=== PATIENT | female | born 1965 | race Caucasian/White ===

== ENCOUNTER 2020-06-17 10:15 | Outpatient (REF) | payer OTHER, SELFPAY ==
[2020-06-17 13:12] LABS: MANUAL DIFF FLAG NO
[2020-06-17 13:21] LABS: Basophils Percent Auto 0.8 % (0-2); Eosinophils Absolute Auto 0.1 X10*3/uL (0.0-0.4); Eosinophils Percent Auto 3.4 % (0-4); Hemoglobin 13.1 g/dl (12.0-16.0); Imm Gran Abs Auto 0.01 X10*3/uL (0.00-0.03); Imm Gran Pct Auto 0.3 % (0.0-0.4); Lymphocytes Absolute Auto 0.8 X10*3/uL (1.2-4.9); Lymphocytes Percent Auto 22.4 % (20-40); Mean Corpuscular Hemoglobin 29.3 pg (27.0-33.0); Mean Corpuscular Volume 91.7 fL (80-98); Mean Platelet Volume 10.3 fL (9.4-12.3); Monocytes Absolute Auto 0.3 X10*3/uL (0.1-1.2); Monocytes Percent Auto 7.9 % (2-11); Neutrophils Absolute Auto 2.3 X10*3/uL (2.0-8.3); Neutrophils Percent Auto 65.2 % (45-73); Platelet Count 221 X10*3/uL (160-400); Red Blood Count 4.47 X10*6/uL (4.20-5.50); White Blood Count 3.5 X10*3/uL (4.8-10.8)
[2020-06-17 13:48] LABS: D Dimer < 200 NG/ML
[2020-06-17 13:55] LABS: Anion Gap 11 (12-20); Blood Urea Nitrogen 15 mg/dL (9-16); Calcium 9.1 mg/dL (8.4-10.2); Carbon Dioxide 29 mmol/L (22-29); Chloride 105 mmol/L (96-108); Estimated Glomerular Filt Rate > 60; Glucose Random 85 mg/dL (60-115); Potassium 4.1 mmol/l (3.3-5.1); Sodium 141 mmol/L (135-145)
[2020-06-17 14:10] LABS: Erythrocyte Sedimentation Rate 9 MM/HR (0-20)
[2020-06-17 14:13] LABS: SARS COV2 IgG Negative (Negative)
[2020-06-19 13:37] LABS: Anti Nuclear Antibody Screen NEGATIVE (NEGATIVE)
== END 2020-06-17 10:16 | disposition home or self-care (01) ==
LOC: HO.LAB 10:15
PROVIDERS: PCP Family Medicine; Visit Provider Hospitalist
DX: R07.89 Other chest pain (principal); R00.0 Tachycardia, unspecified; R06.00 Dyspnea, unspecified; Z20.828 Contact with and (suspected) exposure to other viral communicable diseases
CPT/HCPCS: 36415; 80048; 82785; 85025; 85379; 85652; 86003; 86038; 86039; 86769

== ENCOUNTER 2020-07-11 09:54 | Outpatient (REF) | payer OTHER, SELFPAY ==
--- NOTE | 2020-07-11 15:30 | PFT_ITS ---
INDICATION: Dyspnea. SPIROMETRY: The FEV1 to FVC 74% with an FEV1 of 2.5 L, which is 84% predicted, and an FVC of 3.39 L, which is 89% predicted. No significant response to bronchodilators noted. The patient does have evidence of small airway disease and maximum voluntary ventilation 82% predicted. LUNG VOLUMES: Total lung capacity 90% predicted. Residual volume is 80% predicted. DIFFUSION CAPACITY: DLCO 60% predicted. COMPARISONS: None. INTERPRETATION: There appears to be reversible obstruction consistent with the diagnosis of asthma. The patient does have significant small airways disease, also which may be suggestive of asthma. Maximum voluntary ventilation is within normal limits. Lung volumes are within normal limits. However, the patient does have mild to moderate diffusion impairment that is out of proportion to the findings as above. We will continue monitoring this. This also needs to be corrected for hemoglobin, need to consider underlying pulmonary vascular conditions and/or occult interstitial lung conditions, but at this point, less likely. Og Franco MD MR/MODL / [id number]
== END 2020-07-11 09:55 | disposition home or self-care (01) ==
LOC: HO.RESP 09:54
PROVIDERS: Visit Provider Hospitalist
DX: R06.00 Dyspnea, unspecified (principal)
CPT/HCPCS: 94060; 94727; 94729

== ENCOUNTER → 2020-11-04 11:17 | Outpatient (BNVA) | payer OTHER, SELFPAY | PROVIDERS: PCP Pediatrics; Visit Provider Hospitalist ==

== ENCOUNTER 2021-10-15 14:49 | Outpatient (REF) | payer OTHER, SELFPAY ==
--- NOTE | 2021-10-15 | PFT_ITS ---
INDICATION: Asthma. SPIROMETRY: FEV1 to FVC of 71% with an FEV1 of 2.32 L, which is 79% predicted; an FVC of 3.27 L, which is 86% predicted. No significant response to bronchodilators noted. To note, the patient does have significant small airway disease consistent with diagnosis of asthma. Maximum voluntary ventilation 91% predicted. LUNG VOLUMES: Total lung capacity 96% predicted. DIFFUSION CAPACITY: DLCO 60% predicted. COMPARISONS: PFTs from June 2020. There appears to be a partially reversible obstructive ventilatory defect consistent with her diagnosis of asthma. No significant response to bronchodilators noted. Again, small airways disease consistent with asthma. Normal maximum voluntary ventilation. Lung volumes are within normal limits. The patient does have a mild diffusion impairment. When compared to 2020, no significant change in the FVC or the FEV1. She does have a trend increase in the total lung capacity, and residual volume. The diffusion capacity is unchanged. Clinical correlation warranted. MD YOUNG Lindsey/JAYLA / [id number]
--- NOTE | 2021-10-16 23:57 | OP_ITS ---
SURGEON: Og Franco MD PREOPERATIVE DIAGNOSIS: POSTOPERATIVE DIAGNOSIS: PROCEDURE PERFORMED: ESTIMATED BLOOD LOSS: COMPLICATIONS: ANESTHESIA: ASSISTANTS: SPECIMENS: STUDY: Pulmonary function study. INDICATION: Asthma. SPIROMETRY: FEV1 to FVC of 71% with an FEV1 of 2.32 L, which is 79% predicted, and FVC of 3.27 L, which is 86% predicted. No significant response to bronchodilators noted. Maximum voluntary ventilation 91% predicted. LUNG VOLUMES: Total lung capacity 96% predicted with an expiratory reserve volume of 86% predicted. DIFFUSION CAPACITY: DLCO 60% predicted. COMPARISONS: From 2020. INTERPRETATION: There appears to be a partially reversible obstruction consistent with the diagnosis of asthma. No significant response to bronchodilators noted. Normal maximum voluntary ventilation. Lung volumes are within normal limits. The patient does have a mild diffusion impairment. When compared to 2020, there is no significant change in the FVC. No significant change in the FEV1. There is a trend increase in the total lung capacity, and also the residual volume and no significant change in the diffusion capacity. Clinical correlation warranted. Og Franco MD MR/MODL / [id number]
== END 2021-10-15 14:50 | disposition home or self-care (01) ==
LOC: HO.RESP 14:49
PROVIDERS: PCP Internal Medicine; Visit Provider Hospitalist
DX: J45.909 Unspecified asthma, uncomplicated (principal); Z79.899 Other long term (current) drug therapy
CPT/HCPCS: 94060; 94727; 94729

== ENCOUNTER → 2021-11-04 11:09 | Outpatient (BNVA) | payer OTHER, SELFPAY | PROVIDERS: PCP Internal Medicine; Visit Provider Hospitalist | DX: J45.40 Moderate persistent asthma, uncomplicated (principal) ==

== ENCOUNTER → 2022-11-25 12:48 | Outpatient (BNVA) | payer OTHER, SELFPAY | PROVIDERS: PCP Internal Medicine; Visit Provider Hospitalist ==

== ENCOUNTER 2024-02-04 09:52 | Outpatient (REF) | payer BC, SELFPAY ==
--- NOTE | 2024-02-04 10:00 | PFT_ITS ---
Flows: FEV1: 80 % of predicted at 2.22 L FVC: 99 % of predicted at 3.51 L FEV1/FVC: 63 % Bronchodilator response: Absent Volumes: Total lung capacity: 88 % of predicted at 5.01 L Residual volume: 82 % of predicted at 1.54 L Slow vital capacity: 92 % of predicted at 3.47 L Expiratory reserve volume: 98 % of predicted at 0.96 L Diffusion capacity: Normal Impression: [id number] obstructive ventilatory defect with no bronchodilator response. MTDD
== END 2024-02-04 09:53 | disposition home or self-care (01) ==
LOC: HO.RESP 09:52
PROVIDERS: PCP Internal Medicine; Visit Provider Hospitalist
DX: J45.40 Moderate persistent asthma, uncomplicated (principal)
CPT/HCPCS: 94010; 94640; 94727; 94729

== ENCOUNTER 2024-02-23 15:08 | Outpatient (AMB) | payer BC, SELFPAY ==
[2024-02-23 15:27] VITALS: BP 118/64; PULSE 73; O2SAT 97; BMI 21.9
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
== END 2024-02-23 16:01 | disposition home or self-care (01) ==
PROVIDERS: PCP Internal Medicine; Visit Provider Hospitalist
DX: J45.40 Moderate persistent asthma, uncomplicated (principal); R06.00 Dyspnea, unspecified
CPT/HCPCS: 99214

== ENCOUNTER → 2024-02-23 15:08 | Outpatient (BNVA) | payer BC, SELFPAY | PROVIDERS: PCP Internal Medicine; Visit Provider Hospitalist ==

== ENCOUNTER 2024-12-17 09:04 | Outpatient (AMB) | payer BC, SELFPAY ==
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
--- OUTSIDE RECORDS SUMMARY | 2024-12-17 09:22 | XMS_ITS | Data Portability ---
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 Discussed a differential possibly related to use of inhaled steroids for her lungs. She is diligent with rinsing her mouth with water and has no other symptoms of thrush. She also describes her globus sensation is worse after eating solid foods. Her history of craniectomy for meningioma raises possibility of microaspiration. Fiberoptic laryngoscopy was benign with no pooling of secretions or tumors or lesions. Recommend further investigation with barium swallow. She is agreeable to review results through the portal [email or web address] Not available 04/27/2024 11:13:19 Plan of Treatment Reminders Order Date Submit Date Provider Last Modified By Organization Details Last Modified Time Details Appointments None recorded . Lab None recorded . Referral None recorded . Procedures None recorded . Surgeries None recorded . Imaging barium swallow study 2023 [facility] Imaging Dept, [address] [facility], [place], [address], 10:55:04 Medication Orders None recorded . Patient TargetsNo targets recorded. Patient InstructionsNo instructions recorded. Reason for Referral None Reported. Problems Name Problem SNOMED Code Status Onset Date Resolution Date Notes Provider Name and Address Organization Details Recorded Time Feeling of lump in throat 693560028 Active JEFE LEVY MD [address] [facility] [address], [place], [address], [place] - [facility] 4 11:11:04 Dysphagia 35247366 Active 024 JEFE LEVY MD [address] [address], [place], [phone], [facility] - [facility] 4 11:11:29 Problem Notes None recorded. Procedures Surgical History Date Name Laterality Status Provider Name and Address Organization Details Recorded Time 04/27/20 24 FOL_DP completed JEFE LEVY MD [address], [address], [place] - [facility] 04/24/2024 13:25:48 Hysterectomy completed Lynn Robles [place] - [facility] 04/27/2024 10:46:03 thyroidectomy completed Lynn Robles [place] - [facility] 04/27/2024 10:46:10 section completed Lynn Robles [place] - [facility] 04/27/2024 10:47:49 procedure on brain completed Lynn Robles [place] - [facility] 04/27/2024 10:47:55 Imaging Results None recorded. Procedure Notes None recorded. Medical Equipment None Reported. Allergies No known drug allergies Medications Name Sig Start Date Stop Date Status Note LastModified by Organization Details LastModified Time cetirizine 10 mg tablet TAKE 1 TABLET BY MOUTH EVERY DAY active Not Available Not Available No t Available terbinafine HCl 250 mg tablet TAKE 1 TABLET BY MOUTH EVERY DAY FOR 2 MORE MONTHS 04/27 completed Not Available Not Available Not Available amitriptyli ne 25 mg tablet TAKE 1 TABLET BY MOUTH EVERYDAY AT BEDTIME active Not Available Not Available No t Available econazole nitrate 1 % topical cream APPLY EVERY MORNING AND EVENING ON RIGHT FOOT FOR 4 WEEKS UNTIL CLEAR 04/27 completed Not Available Not Available Not Available zolpidem 10 mg tablet TAKE 1 TABLET BY MOUTH EVERY DAY AT BEDTIME NEEDED FOR FOR INSOMNIA active Not Available Not Available No t Available fluticasone propionate 50 mcg/actuati on nasal spray,suspe nsion USE 1 SPRAYS IN BOTH NOSTRILS DAILY,X30 DAYS SHAKE WELL BEFORE USING active Not Available Not Available No t Available amoxicillin 875 mg-potassiu m clavulanate 125 mg tablet TAKE 1 TABLET BY MOUTH EVERY 12 HOURS FOR 10 DAYS 04/27 completed Not Available Not Available Not Available fluticasone 232 mcg-salmete rol 14 mcg/actuati on breath activated powdr INHALE 1 PUFF EVERY 12 HOURS FOR 30 DAYS active Not Available Not Available No t Available Vitals Date Recorded Body height Body weight Provider Name and Address Organization Details Last Updated DateTime 04/27/2024 170.18 cm 78462.75 g Lynn Robles [place] - [facility] 04/27/2024 10:47:29 Social History None recorded. Functional Status None recorded. Mental Status None recorded. Family History Nothing Reported. Medical History Condition Response Anemia Y Arthritis Y Asthma Y Gynecological HistoryNo gynecological history recorded. Obstetrics History GPAL:G 0 P 0 0 0 0 Past Encounters Encounter ID Performer Location Encounter Start Date Encounter Closed Date Diagnosis/Indication Diagnosis SNOMED-CT Code Diagnosis ICD10 Code Diagnosis Note [id number] JEFE LEVY MD [facility] [address] [address] 04/27/2024 10:25:38 04/27/2024 11:14:55 Feeling of lump in throat 118772737 R09.89 Dysphagia 69060285 R13.1 0 Health Concerns Section Related Observation LastModified by Organization Detai ls LastModified Time None Recorded Concern Status LastModified by Organization Details LastModified Time None Recorded Advance Directives Directive None Recorded Payers Insurance Date Sequence Insurance Name Policy Number Policy Rousseau Covered Member ID Rousseau Member ID Guarantor Name 04/27/2024 1 [employer] [id number] Eleanor Bradford [id number] Eleanor Bradford Notes Date Note Type Note Provider Name and Address Organization Details Recorded Time 04/27/2024 text/html frequent throat clearingtrial of omeprazole x 1 month with no improvement. 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
== END 2024-12-17 09:38 | disposition home or self-care (01) ==
LOC: HO.HPS 09:05
PROVIDERS: PCP Internal Medicine; Visit Provider Hospitalist
DX: J45.40 Moderate persistent asthma, uncomplicated (principal); R06.00 Dyspnea, unspecified; J44.89 Other specified chronic obstructive pulmonary disease
CPT/HCPCS: 99213

== ENCOUNTER 2025-02-16 08:41 | Outpatient (REF) | payer BC, SELFPAY ==
--- NOTE | ~2025-02-16 | XR_ITS ---
EXAMINATION: XR CHEST CLINICAL INFORMATION: J45.40 - Moderate persistent asthma, uncomplicated COMPARISON: None available. TECHNIQUE: 2 views of the chest were obtained. FINDINGS: Hyperinflated lungs. No consolidation, pleural effusion or pneumothorax. Cardiomediastinal silhouette size is normal. Mild multilevel endplate sclerosis, axial skeleton. Small multilevel Schmorl nodes in the endplates of the mid thoracic spine. Bilateral breast implants. XR/XR chest 2V IMPRESSION: Hyperinflated lungs without acute airspace disease. Electronically signed by: Prem Rayo MD 02/19/2025 07:08 AM EDT
== END 2025-02-16 08:42 | disposition home or self-care (01) ==
LOC: HO.XRAY 08:41
PROVIDERS: PCP Internal Medicine; Visit Provider Hospitalist
DX: J45.40 Moderate persistent asthma, uncomplicated (principal)
CPT/HCPCS: 71046

== ENCOUNTER → 2025-02-16 08:43 | Outpatient (BNV) | payer BC, SELFPAY | PROVIDERS: PCP Internal Medicine; Visit Provider Radiology Diagnostic Radiology | DX: J98.4 Other disorders of lung (principal) | CPT/HCPCS: 71046 ==

== ENCOUNTER 2025-02-21 13:21 | Outpatient (AMB) | payer BC, SELFPAY ==
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
[2025-02-21 13:24] VITALS: BP 104/80; PULSE 95; O2SAT 99; BMI 21.6
--- OUTSIDE RECORDS SUMMARY | 2025-02-21 14:38 | XMS_ITS ---
Author Name Jorge LJaylene sal Address Unknown Organization [facility] Care Team Providers Care Count Team Member Name Role Phone Unavailable Primary Care Physician Unavailab le History Of Present Illness This is a 60 year old female who is an established patient who is being seen for an evaluation of skin lesions.Location: body throughoutQuality: asymptomaticSeverity: moderateModifying Factors: Nothing makes the lesion better or worseDuration: yearsHistory of Previous Treatments: has not been treate dPertinent History: actinic keratoses, basal cell skin cancer , and squamous cell skin cancer Pertinent Negatives: no family history of melanomaAdditional Visit Reasons: education and counseling about sun exposure, evaluation for suspicious growths, and surveillance against skin cancer recurrencesAdditional History: Pt reports no spots of concern. Medications Medication Generic Name RxNorm Strength Strength Unit Route Dose Dose Form Frequency Date Started Date Ended Status Indication Sig econazole econazol e 175468 1 % Topica l cream BID 01/20/20 23 suspend ed Appl y AM and PM righ t foot for 4 week s unti l len r EpiCeram emollien t combinat ion no.32 Topica l emuls ion, exten ded relea se QD BID 11/07/19 22 suspend ed Appl y AM and PM to dryn ess on hand s and feet as need ed albuterol sulfate albutero l sulfate 5530908 90 mcg/actua tion Inhala tion Inhal e 1 puff aero powdr breat h act w/sen sor as needed active Symbicort budesoni de-formo terol 8561888 160-4.5 mcg/actua tion Inhala tion Inhal e 1 puff HFA aeros ol inhal er daily active amitriptyli ne amitript yline 25 mg Oral Take 1 table t Daily active cephalexin cephalex in 096611 500 mg Oral capsu le 12/16/20 21 suspend ed Take one pill po BID x 5 days with food and glas s of tisha ludwig Vitamin D3 cholecal ciferol (vitamin D3) 25 mcg (1,000 unit) Oral Take 1 table t QOD active zolpidem 876189 10 mg Oral Take 1 table t Daily active Acyclovir NULL 11/19/19 18 active Amitriptyli ne HCl NULL 06/18/20 15 active Amitriptyli ne HCl NULL 12/17/19 15 active Benzonatate NULL 11/19/19 18 active Clobetasol Propionate NULL 11/18 18 active Econazole Nitrate NULL 11/19/19 18 suspend ed PEG-3350/El ectrolytes NULL 06/18 15 active predniSONE NULL 11/19/19 18 active ProAir RespiClick NULL 11/18 18 active Zolpidem Tartrate NULL 0 15 active Problems Problem Code Type Status Date of Diagnosis Da te of Resolution Neoplasm of uncertain behavior of skin (disorder) 20725442(SNO MED) Diagnosis active 02/19/2025 History of malignant neoplasm of skin (situation) 614225133(SN OMED) Diagnosis active 02/19/2025 History of neoplasm (situation) 151424070(SN OMED) Diagnosis active 02/19/2025 History of skin and/or subcutaneous tissue disease (situation) 682848223458 105(SNOMED) Diagnosis active 02/19/2025 Hemangioma of skin and subcutaneous tissue (disorder) 588393747(SN OMED) Diagnosis active 02/19/2025 Seborrheic keratosis (disorder) 890581641(SN OMED) Diagnosis active 02/19/2025 Disorder of pigmentation (disorder) 080700687(SN OMED) Diagnosis active 02/19/2025 Melanocytic nevus of trunk (disorder) 730278222(SN OMED) Diagnosis active 02/19/2025 Patient encounter status (finding) 731249984(SN OMED) Diagnosis active 02/19/2025 Hemangioma of skin and subcutaneous tissue (disorder) 155097484(SN OMED) Diagnosis active 08/15/2024 Seborrheic keratosis (disorder) 249186918(SN OMED) Diagnosis active 08/15/2024 Disorder of pigmentation (disorder) 890294456(SN OMED) Diagnosis active 08/15/2024 Melanocytic nevus of trunk (disorder) 768124835(SN OMED) Diagnosis active 08/15/2024 Patient encounter status (finding) 301692831(SN OMED) Diagnosis active 08/15/2024 History of malignant neoplasm of skin (situation) 968687135(SN OMED) Diagnosis active 08/15/2024 History of neoplasm (situation) 795377061(SN OMED) Diagnosis active 08/15/2024 History of skin and/or subcutaneous tissue disease (situation) 528569722318 105(SNOMED) Diagnosis active 08/15/2024 Neoplasm of uncertain behavior of skin (disorder) 82752675(SNO MED) Diagnosis active 02/16/2024 Hemangioma of skin and subcutaneous tissue (disorder) 484763795(SN OMED) Diagnosis active 02/16/2024 Seborrheic keratosis (disorder) 716839595(SN OMED) Diagnosis active 02/16/2024 Disorder of pigmentation (disorder) 260716590(SN OMED) Diagnosis active 02/16/2024 Melanocytic nevus of trunk (disorder) 888920700(SN OMED) Diagnosis active 02/16/2024 Patient encounter status (finding) 071236869(SN OMED) Diagnosis active 02/16/2024 History of malignant neoplasm of skin (situation) 970587553(SN OMED) Diagnosis active 02/16/2024 History of neoplasm (situation) 742804766(SN OMED) Diagnosis active 02/16/2024 History of skin and/or subcutaneous tissue disease (situation) 368984802081 105(SNOMED) Diagnosis active 02/16/2024 Seborrheic keratosis (disorder) 472607316(SN OMED) Diagnosis active 12/16/2023 Onychomycosis caused by dermatophyte (disorder) 614150135(SN OMED) Diagnosis active 10/07/2023 Disorder of nail (disorder) 85892589(SNO MED) Diagnosis active 08/22/2023 Neoplasm of uncertain behavior of skin (disorder) 36976877(SNO MED) Diagnosis active 08/05/2023 Hemangioma of skin and subcutaneous tissue (disorder) 520863996(SN OMED) Diagnosis active 08/05/2023 Seborrheic keratosis (disorder) 411273735(SN OMED) Diagnosis active 08/05/2023 Disorder of pigmentation (disorder) 234325010(SN OMED) Diagnosis active 08/05/2023 Melanocytic nevus of trunk (disorder) 894885520(SN OMED) Diagnosis active 08/05/2023 Disorder of nail (disorder) 44261485(SNO MED) Diagnosis active 08/05/2023 Patient encounter status (finding) 004994583(SN OMED) Diagnosis active 08/05/2023 History of skin and/or subcutaneous tissue disease (situation) 575866707842 105(SNOMED) Diagnosis active 08/05/2023 History of neoplasm (situation) 444036288(SN OMED) Diagnosis active 08/05/2023 History of malignant neoplasm of skin (situation) 983756227(SN OMED) Diagnosis active 08/05/2023 Basal cell carcinoma of truncal skin (disorder) 558958510(SN OMED) Diagnosis active 02/17/2023 Basal cell carcinoma of upper extremity (disorder) 406866609(SN OMED) Diagnosis active 02/17/2023 Hemangioma of skin and subcutaneous tissue (disorder) 431172520(SN OMED) Diagnosis active 01/19/2023 Seborrheic keratosis (disorder) 244905780(SN OMED) Diagnosis active 01/19/2023 Disorder of pigmentation (disorder) 967337978(SN OMED) Diagnosis active 01/19/2023 Melanocytic nevus of trunk (disorder) 141351002(SN OMED) Diagnosis active 01/19/2023 Patient encounter status (finding) 814601537(SN OMED) Diagnosis active 01/19/2023 History of malignant neoplasm of skin (situation) 458131570(SN OMED) Diagnosis active 01/19/2023 History of skin and/or subcutaneous tissue disease (situation) 811801285733 105(SNOMED) Diagnosis active 01/19/2023 Neoplasm of uncertain behavior of skin (disorder) 74426849(SNO MED) Diagnosis active 01/19/2023 Tinea pedis (disorder) 3372718(SNOM ED) Diagnosis active 01/19/2023 History of malignant neoplasm of skin (situation) 126894649(SN OMED) Diagnosis active 06/28/2022 History of skin and/or subcutaneous tissue disease (situation) 336440571134 105(SNOMED) Diagnosis active 06/28/2022 Hemangioma of skin and subcutaneous tissue (disorder) 130020776(SN OMED) Diagnosis active 06/28/2022 Seborrheic keratosis (disorder) 964468105(SN OMED) Diagnosis active 06/28/2022 Disorder of pigmentation (disorder) 106115806(SN OMED) Diagnosis active 06/28/2022 Melanocytic nevus of trunk (disorder) 833889914(SN OMED) Diagnosis active 06/28/2022 Patient encounter status (finding) 841195939(SN OMED) Diagnosis active 06/28/2022 Asteatosis cutis (disorder) 00844398(SNO MED) Diagnosis active 06/28/2022 History of malignant neoplasm of skin (situation) 630746857(SN OMED) Diagnosis active 11/06/2021 History of skin and/or subcutaneous tissue disease (situation) 079193473679 105(SNOMED) Diagnosis active 11/06/2021 Hemangioma of skin and subcutaneous tissue (disorder) 389478816(SN OMED) Diagnosis active 11/06/2021 Seborrheic keratosis (disorder) 892955433(SN OMED) Diagnosis active 11/06/2021 Disorder of pigmentation (disorder) 465196208(SN OMED) Diagnosis active 11/06/2021 Melanocytic nevus of trunk (disorder) 892250999(SN OMED) Diagnosis active 11/06/2021 Patient encounter status (finding) 343293969(SN OMED) Diagnosis active 11/06/2021 Erythroderma (disorder) 283806842(SN OMED) Diagnosis active 11/06/2021 Basal cell carcinoma of upper extremity (disorder) 585075859(SN OMED) Diagnosis active 07/30/2021 Basal cell carcinoma of truncal skin (disorder) 371356945(SN OMED) Diagnosis active 07/01/2021 Actinic keratosis (disorder) 524338437(SN OMED) Diagnosis active 07/01/2021 Hemangioma of skin and subcutaneous tissue (disorder) 949548161(SN OMED) Diagnosis active 07/01/2021 Basal cell carcinoma of upper extremity (disorder) 227589725(SN OMED) Diagnosis active 07/01/2021 Surgical follow-up (finding) 256909265(SN OMED) Diagnosis active 06/18/2021 Melanocytic nevus of trunk (disorder) 425616341(SN OMED) Diagnosis active 06/04/2021 Neoplasm of uncertain behavior of skin (disorder) 23080458(SNO MED) Diagnosis active 04/24/2021 Inflamed seborrheic keratosis (disorder) 122845620(SN OMED) Diagnosis active 04/24/2021 Hemangioma of skin and subcutaneous tissue (disorder) 251063882(SN OMED) Diagnosis active 04/24/2021 Seborrheic keratosis (disorder) 208803152(SN OMED) Diagnosis active 04/24/2021 Disorder of pigmentation (disorder) 039028454(SN OMED) Diagnosis active 04/24/2021 Melanocytic nevus of trunk (disorder) 368662462(SN OMED) Diagnosis active 04/24/2021 Patient encounter status (finding) 349086349(SN OMED) Diagnosis active 04/24/2021 Benign neoplasm of skin of trunk (disorder) 63587864(SNO MED) Diagnosis active 12/16/2014 History of clinical finding in subject (situation) 098087363(SN OMED) Problem active Chronic obstructive pulmonary disease (disorder) 00838705(SNO MED) Problem active Basal cell carcinoma of skin (disorder) 965878893(SN OMED) Problem active Asthma (disorder) 683624243(SN OMED) Problem active Squamous cell carcinoma (disorder) 578853680(SN OMED) Problem active Anxiety disorder (disorder) 500358998(SN OMED) Problem active Depressive disorder (disorder) 27828231(SNO MED) Problem active Actinic keratosis (disorder) (SN OMED) Problem active Desquamation, function (observable entity) 85490014(SNO MED) Problem active History of atypical nevus (situation) 713386454767 1(SNOMED) Problem active Junctional nevus (morphologic abnormality) 81979258(SNO MED) Problem active Onychomycosis (disorder) 169491466(SN OMED) Problem active Seborrheic keratosis (disorder) 976170070(SN OMED) Problem active Tinea pedis (disorder) 3678077(SNOM ED) Problem active Results No data Encounters Service provided at [facility], [address] [place] [address], [address], [place], [place] [id number]. Office phone number is [phone]. Office fax number is [phone]. Encounter Diagnosis Location Date / Time Type Neoplasm of Uncertain Behavi or (D48.5)History of Basal Cell Carcinoma (Z85.828)History of Superficial Basal Cell Carcinoma (Z86.007)History of Atypical Nevi (Z87.2)Fay Angiomas (D18.01)Seborrheic Keratoses (L82.1)Lentigines (L81.4)Benign Nevi (D22.5)Skin Education (Z71.89) [facility] 02/19/2025 15:00:00 [facility] [id number] Reason For Referral I saw Eleanor Bradford in the office on February 19, 2025.Below is a summary of our visit:Neoplasm of Uncertain Behavior: pinkish flesh colored papule located on the right medial superior chest.Plan: Photo-Documentation, Biopsy by Shave Method, and Additional Notes.History of Basal Cell Carcinoma: wellhealed scar with NER distributed on the right arm and trunk.Plan: Counseling.History of SuperficialBasal Cell Carcinoma: well healed scar with NER distributed on the left arm and trunk.Plan: Counseling.History of Atypical Nevi: well healed scar with NER distributed on the left medial breast 7-8:00region and right lateral abdomen.Plan: Counseling.Fay Angiomas: bright fay-red papules located on the trunk.Plan: Counseling.Seborrheic Keratoses: white, stucco keratoses, flat lesions, stuck-on, warty, greasy brown papules with pseudo-horn cysts, pigmented waxy papules, and with milia-like cysts and comedo-like openings on ELM located on the body throughout.Plan: Counseling.Lentigines: reticulated light beasley macules in sun distribution located on the trunk.Plan: Counseling.Benign Nevi: regular, symmetrical, evenly-colored macules and papules located on the body throughout.Plan: Counseling.Skin Education: Reviewed ABCDEs of nevi. Recommend sunscreen when outdoors. Regular self-skin exams recommended..Plan: Sunscreen Recommendations.My impression and plan was the followin.Neoplasm of Uncertain BehaviorPhoto-Documentation:.Biopsy by Shave Method: right medial superior chest.Additional Notes2.History of Basal Cell CarcinomaCounseling3.History of Superficial Basal Cell CarcinomaCounseling4.History of Atypical NeviCounseling5.Fay AngiomasCounseling6.Seborrheic KeratosesCounseli ng7.LentiginesCounseling8.Benign NeviCounseling9.Skin EducationSunscreen Recommendations Procedures Procedure Date Documentation of current medications (pr ocedure) 02/19/2025 12:00 am UTC Shave biopsy (procedure) 02/19/2025 12:0 0 am UTC Documentation of current medications (pr ocedure) 08/15/2024 12:00 am UTC Shave biopsy (procedure) 02/16/2024 12:0 0 am UTC Cryotherapy of skin lesion with liquid n itrogen (procedure) 12/16/2023 12:00 am UTC Clipping nails of patient (procedure) 12:00 am UTC Shave excision of skin lesion (procedure ) 08/05/2023 12:00 am UTC Tumor destruction (procedure) 02/17/2023 12:00 am UTC Shave biopsy (procedure) 01/19/2023 12:0 0 am UTC Destruction of lesion of skin (procedure ) 11/06/2021 12:00 am UTC Excision (procedure) 07/30/2021 12:00 am UTC Tumor destruction (procedure) 07/01/2021 12:00 am UTC Cryotherapy of skin lesion with liquid n itrogen (procedure) 07/01/2021 12:00 am UTC Excision (procedure) 06/04/2021 12:00 am UTC Shave biopsy (procedure) 04/24/2021 12:0 0 am UTC Cryotherapy of skin lesion with liquid n itrogen (procedure) 04/24/2021 12:00 am UTC Documentation of past medical history (p rocedure) Documentation of past medical history (p rocedure) Documentation of past medical history (p rocedure) Documentation of past medical history (p rocedure) Documentation of past medical history (p rocedure) Review Of Systems Provider reviewed on Feb 19, 2025.A focused review of systems was performed including Integumentary.No Problems With Healing And No Problems With Scarring (hypertrophic Or Keloid). Assessment 1.Neoplasm of Uncertain BehaviorPhoto-Documentation:.Biopsy by Shave Method: right medial superior chest.Additional Notes2.History of Basal Cell CarcinomaCounseling3.History of Superficial Basal Cell CarcinomaCounseling4.History of Atypical NeviCounseling5.Fay AngiomasCounseling6.Seborrheic KeratosesCounseling7.LentiginesCounseling8.Benign NeviCounseling9.Skin EducationSunscreen Recommendations Plan of Care Future visit for 02/19/2026 - Follow up in 1 year for: Skin Check - 15 minutes. Other Instructions:CSE in CSE slot, Keep October appointment. Other Instructions: CSE in CSE slot, Keep October appointment. Code Detail Instructions 622853 terbinafine HCl 250 mg tablet Ta ke 1 po QD for 2 more months 000637 terbinafine HCl 250 mg tablet Ta ke one tablet po QD 867400 econazole 1 % topical cream Appl y AM and PM right foot for 4 weeks until clear 70572649188 EpiCeram topical emu lsion, extended release Apply AM and PM to dryness on hands and feet as needed 450693 cephalexin 500 mg capsule Take o ne pill po BID x 5 days with food and glass of water. Instructions * I counseled the patient regarding the following:Skin Care: Patients with a history of non-melanoma skin cancer should wear broad spectrum sunscreen and sun protective clothing.Expectations: Scars from excisional sites of non- melanoma skin cancers should be monitored for any recurrences.I recommended the following: Sunscreen * I counseled the patient regarding the following:Skin Care: Patients with a history of non-melanoma skin cancer should wear broad spectrum sunscreen and sun protective clothing.Expectations: Scars from excisional sites of non- melanoma skin cancers should be monitored for any recurrences.I recommended the following: Broad Spectrum Sunscreen SPF 30+ * I counseled the patient regarding the following:Education: The importance of regular self skin checks to monitor for any changes in mole size, shape or color was reviewed with the patient.Expectations: Atypical Nevi need to be monitored on a regular basis by patients and dermatologists for changes since they have the potential to turn into melanoma.I recommended the following: SunscreenSelf-Skin Exams * I counseled the patient regarding the following:Expectations: Fay Angiomas are benign vascular growths. No treatment is necessary. * I counseled the patient regarding the following:Skin Care: Seborrheic Keratoses are benign. No treatment is necessary.Expectations: Seborrheic Keratoses are benign warty growths. Patients get more ofthem as they age. * I counseled the patient regarding the following:Expectations: Lentigines are benign pigmented lesions that occur on sun-exposed and sun-damaged skin. * I counseled the patient regarding the following:Instructions: Monthly self- skin checks to monitor for any changes in moles are recommended.No treatment is necessary.Contact Office if: Any moles change in size, shape or color; itch, burn or bleed. Social History Code Activity Start Date End Date 838786940 (ScaleArc) Never smoker Sex female Sexual orientation Unspecified Gender identity Unspecified Vital Signs No data
== END 2025-02-21 14:06 | disposition home or self-care (01) ==
LOC: HO.HPS 13:21
PROVIDERS: PCP Internal Medicine; Visit Provider Hospitalist
DX: J45.40 Moderate persistent asthma, uncomplicated (principal); R06.00 Dyspnea, unspecified; J44.89 Other specified chronic obstructive pulmonary disease; R00.0 Tachycardia, unspecified; R07.89 Other chest pain
CPT/HCPCS: 99214

== ENCOUNTER 2025-02-25 11:10 | Outpatient (REF) | payer BC, SELFPAY ==
[2025-02-25 11:39] LABS: Hematocrit 36.7 % (37.0-47.0); Hemoglobin 12.4 g/dl (12.0-16.0); Imm Gran Abs Auto 0.00 X10*3/uL (0.00-0.03); Imm Gran Pct Auto 0.0 % (0.0-0.4); Lymphocytes Absolute Auto 0.7 X10*3/uL (1.2-4.9); MANUAL DIFF FLAG NO; Mean Corpuscular HGB Conc 33.8 g/dl (31.0-35.0); Mean Corpuscular Hemoglobin 29.7 pg (27.0-33.0); Mean Corpuscular Volume 87.8 fL (80.0-98.0); NRBC Abs Auto 0.000 X10*3/uL (0.0-0.012); NRBC Pct Auto 0.0 /100WBC (0.0-0.2); Platelet Count 203 X10*3/uL (160-400); Red Blood Count 4.18 X10*6/uL (4.20-5.50); White Blood Count 2.8 X10*3/uL (4.8-10.8)
[2025-02-25 12:18] LABS: Anion Gap 10 (12-20); Blood Urea Nitrogen 18 mg/dL (9-16); Calcium 9.2 mg/dL (8.4-10.2); Carbon Dioxide 26 mmol/L (22-29); Chloride 110 mmol/L (96-108); Estimated Glomerular Filt Rate > 60; Potassium 3.9 mmol/L (3.3-5.1); Sodium 142 mmol/L (135-145)
[2025-02-25 12:31] LABS: D Dimer High Sensitivity < 150 NG/ML
== END 2025-02-25 11:11 | disposition home or self-care (01) ==
LOC: HO.LAB 11:10
PROVIDERS: PCP Internal Medicine; Visit Provider Hospitalist
DX: R79.89 Other specified abnormal findings of blood chemistry (principal); R00.0 Tachycardia, unspecified
CPT/HCPCS: 36415; 80048; 82785; 84443; 85025; 85379; 85652

== ENCOUNTER → 2025-04-24 11:00 | Outpatient (REF) | payer BC, SELFPAY ==
--- NOTE | 2025-04-24 11:05 | CA_ITS ---
Acquisition Time: 2025-04-24 11:26:05 Total Exercise Time: 00:06:00 Test Indications: CP,Dyspnea Medications: SEE EMAR Protocol: SCOTT Max HR: 193 BPM 120% of Pred: 160 BPM Max BP: 140/90 mmHG Max Work Load: 7.0 METS Exercise stress test with exercise 6 mins of Scott Protocol, achieving 102% MPHR, with reports of SOB, no chest pain, with isolated PVCs, with normotensive response to exercise. Without any EKG changes meetingcriteria for ischemia. In recovery, breathing returned to baseline. Echo images obtained by tech at rest and post peak exercise. Definity contrast utilized. Test reviewed with Dr. Diaz. Referred By: Og Franco Electronically Signed By: Michael Caceres
--- OUTSIDE RECORDS SUMMARY | 2025-04-24 13:04 | XMS_ITS | Data Portability ---
Author Organization [place] - [facility], Allergy Address [address] [address] Care Team Providers Care Hand Bootmaker Name Role Phone INOCENCIA VERDUGO Referring Provider [phone] Assessment Encounter Date Assessment Date Assessment LastModified [...] recorded . Imaging barium swallow study 2023 [facility] Imaging Dept, [address] [facility], [place], [address], 10:55:04 Medication Orders None recorded . Patient TargetsNo targets recorded. Patient InstructionsNo instructions recorded. Reason for Referral None Reported. Problems Name Problem SNOMED Code Status Onset Date Resolution Date Notes Provider Name and Address Organization Details Recorded Time Feeling of lump in throat 258844670 Active JEFE LEVY MD [address] [facility] [address], [place], [address], [place] - [facility] 4 11:11:04 Dysphagia 22309229 Active 024 JEFE LEVY MD [address] [address], [place], [address], [facility] - [facility] 4 11:11:29 Problem Notes None recorded. Procedures Surgical History Date Name Laterality Status Provider Name and Address Organization Details Recorded Time 04/27/20 24 FOL_DP completed JEFE LEVY MD [address], [address], [place] - [facility] 04/24/2024 13:25:48 Hysterectomy completed Lynn Robles [place] - [facility] 04/27/2024 10:46:03 thyroidectomy completed Lynn Robles [place] - [facility] 04/27/2024 10:46:10 section completed Lynn Robles [place] - [facility] 04/27/2024 10:47:49 procedure on brain completed Lynn Robles [place] - [facility] 04/27/2024 10:47:55 Imaging Results None recorded. Procedure [...] Details Last Updated DateTime 04/27/2024 170.18 cm 60398.75 g Lynn Robles [place] - [facility] 04/27/2024 10:47:29 Social History None recorded. Functional Status None recorded. Mental Status None recorded. Family History Nothing Reported. Medical History Condition Response Anemia Y Arthritis Y Asthma Y Gynecological HistoryNo gynecological history recorded. Obstetrics History GPAL:G 0 P 0 0 0 0 Past Encounters Encounter ID Performer Location Encounter Start Date Encounter Closed Date Diagnosis/Indication Diagnosis SNOMED-CT Code Diagnosis ICD10 Code Diagnosis IMO Codes Diagnosis Note [id number] JEFE LEVY MD [facility] [address] [address] 04/27/2024 10:25:38 04/27/2024 11:14:55 Feeling of lump in throat 827000564 R09.89 Dysphagia 03747633 R13.1 0 Health Concerns Section Related Observation LastModified by Organization Detai ls LastModified Time None Recorded Concern Status LastModified by Organization Details LastModified Time None Recorded Advance Directives Directive None Recorded Payers Insurance Date Sequence Insurance Name Policy Number Policy Rousseau Covered Member ID Rousseau Member ID Guarantor Name 04/27/2024 1 [employer]-ID [facility] Eleanor Bradford [id number] Eleanor Bradford Notes Date Note Type Note Provider Name and Address Organization Details Recorded Time 04/27/2024 text/html ROS as noted in the HPI frequent throat clearingtrial of omeprazole x 1 month with no improvement. 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
== END ==
LOC: HO.CARD 11:00
PROVIDERS: PCP Internal Medicine; Visit Provider Hospitalist
DX: R07.89 Other chest pain (principal); R00.0 Tachycardia, unspecified; R06.00 Dyspnea, unspecified
CPT/HCPCS: 93350; Q9957

== ENCOUNTER → 2025-04-24 11:05 | Outpatient (BNV) | payer BC, SELFPAY | PROVIDERS: PCP Internal Medicine | DX: R06.02 Shortness of breath (principal); R94.31 Abnormal electrocardiogram [ECG] [EKG]; I49.3 Ventricular premature depolarization | CPT/HCPCS: 93016; 93018; 93350; 93352 ==